=== PATIENT | female | born 1965 | race American Indian/Alaskan Native ===

== ENCOUNTER 2019-10-12 21:50 | Observation (INO) | payer SELFPAY ==
[2019-10-12] MEDS ORDERED: ASPIRIN 325 MG TAB PO ONE (22:32)
--- NOTE | 2019-10-12 23:41 | XRay Report ---
CHEST 1 VIEW INDICATION / CLINICAL INFORMATION: Chest Pain. COMPARISON: None available. FINDINGS: SUPPORT DEVICES: None. HEART / MEDIASTINUM: Critics silhouette size appears slightly enlarged. LUNGS / PLEURA: There is some mild interstitial pulmonary edema. The lungs are otherwise clear. No ap preciable pleural effusion. No pneumothorax. ADDITIONAL FINDINGS: No significant additional findings. IMPRESSION: 1. Mild interstitial pulmonary edema. Borderline cardiomegaly. Signer Name: Tiffanie Johnson MD Signed: 10/12/2019 11:37 PM Workstation Name: [id number]
[2019-10-12 23:53] LABS: BUN/Creatinine Ratio 14; Blood Urea Nitrogen 14 mg/dL (7-17); Calcium 9.5 mg/dL (8.4-10.2); Hemolysis Index 1
[2019-10-12 23:54] LABS: Basophils % (Auto) 0.7 % (0.0-1.8); Eosinophils # (Auto) 0.4 K/mm3 (0.0-0.4); Eosinophils % (Auto) 5.8 % (0.0-4.3); Hematocrit 29.8 % (30.3-42.9); Hemoglobin 10.2 gm/dl (10.1-14.3); Lymphocytes % (Auto) 28.3 % (13.4-35.0); Mean Corpuscular HGB Conc 34 % (30-34); Mean Corpuscular Volume 71 fl (79-97); Monocytes # (Auto) 0.5 K/mm3 (0.0-0.8); Monocytes % (Auto) 6.6 % (0.0-7.3); Platelet Count 306 K/mm3 (140-440); Red Blood Count 4.21 M/mm3 (3.65-5.03); Red Cell Distribution Width 15.4 % (13.2-15.2)
--- NOTE | 2019-10-13 03:32 | Emergency Department Report ---
ED Chest Pain HPI - General Chief Complaint: Chest Pain Stated Complaint: CHEST PAIN PUI?: No Time Seen by Provider: 10/13/19 03:16 Source: patient Mode of arrival: Ambulatory Limitations: No Limitations - History of Present Illness Initial Comments: Patient is a 53-year-old female that presents emergency room with complaints of chest pain or shortness of breath and lower extremity edema. Patient states her chest pain shortness of breath started this morning at 10 AM. Patient states the lower extremity edema started 2 to 3 days ago. Patient states her symptoms are worsening. Patient states her chest pain is a 10 out of 10. Patient states is a substernal chest pain. Patient states the chest pain is better with rest and worse with exertion. Patient states that shortness of breath is better with rest and worse with exertion. Patient denies fever and chills. Patient denies diaphoresis. Patient complains of nausea without vomiting. Patient denies recent travel. Patient denies recent international travel. P atient denies exposure to the novel coronavirus. Patient denies sick contacts. Patient denies fever and chills. Patient denies cough. Patient denies diarrhea. Patient denies coming in contact with anybody with symptoms of the novel coronavirus. MD Complaint: chest pain -: Sudden Onset: during rest Pain Location: substernal, left chest Severity: severe Severity scale (0 -10): 10 Quality: sharp Consistency: constant Improves With: rest Worsens With: exertion re: nausea, dyspnea. denies: vomting, diaphoresis, sense of impending doom Other Symptoms: leg swelling. denies: cough, fever, syncope, rash, acid taste in mouth, palpitations, burping Treatments Prior to Arrival: none Aspirin use within the Past 7 Days: (1) Yes - Related Data On Oral Contraceptives: No Allergies Allergy/AdvReac Type Severity Reaction Status Date / Time hydrocodone Allergy Rash Verified 10/12/19 22:27 Heart Score - HEART Score History: Moderately suspicious EKG: Non-specific Age: 45-65 Risk factors: 1-2 risk factors Troponin: < normal limit HEART Score: 4 ED Review of Systems ROS: Stated complaint: CHEST PAIN Other details as noted in HPI Constitutional: denies: chills, fever Eyes: denies: eye pain, eye discharge, vision change ENT: denies: ear pain, throat pain Respiratory: shortness of breath. denies: cough, wheezing Cardiovascular: chest pain, dyspnea on exertion, edema. denies: palpitations Endocrine: no symptoms reported Gastrointestinal: denies: abdominal pain, nausea, diarrhea Genitourinary: denies: urgency, dysuria, discharge Musculoskeletal: denies: back pain, joint swelling, arthralgia Skin: denies: rash, lesions Neurological: denies: headache, weakness, paresthesias Psychiatric: denies: anxiety, depression Hematological/Lymphatic: denies: easy bleeding, easy bruising ED Past Medical Hx - Past Medical History Previous Medical History?: Yes Hx Hypertension: Yes Hx Diabetes: Yes - Surgical History Past Surgical History?: No - Family History Family history: no significant - Social History Smoking Status: Never Smoker Substance Use Type: None ED Physical Exam - General Limitations: No Limitations General appearance: alert, in no apparent distress - Head Head exam: Present: atraumatic, normocephalic - Eye Eye exam: Present: normal appearance - ENT ENT exam: Present: mucous membranes moist - Neck Neck exam: Present: normal inspection - Respiratory Respiratory exam: Present: normal lung sounds bilaterally. Absent: respiratory distress, wheezes, rales - Cardiovascular Cardiovascular Exam: Present: regular rate, normal rhythm. Absent: systolic murmur, diastolic murmur, rubs, gallop - GI/Abdominal GI/Abdominal exam: Present: soft, normal bowel sounds - Extremities Exam Extremities exam: Present: normal inspection - Back Exam Back exam: Present: normal inspection - Neurological Exam Neurological exam: Present: alert, oriented X3 - Psychiatric Psychiatric exam: Present: normal affect, normal mood - Skin Skin exam: Present: warm, dry, intact, normal color. Absent: rash ED Course Vital Signs 10/13/19 10/13/19 10/13/19 04:00 05:09 06:51 Pulse Rate 60 62 77 Respiratory 15 15 16 Rate Blood Pressure 222/105 211/109 146/94 [Right] O2 Sat by Pulse 97 97 97 Oximetry - Reevaluation(s) Reevaluation #1: Patient's BP significantly high and patient will be given 40 of Lasix for blood pressure and pulmonary edema. 10/13/19 03:55 Reevaluation #2: I discussed all results with patient. I discussed plan of care with patient. Patient agrees with plan of care and admission. Patient to be admitted to the hospitalist service. 10/13/19 04:15 Reevaluation #3: Patient's blood pressure still significantly elevated. Patient was given hydralazine 20 mg. Patient will continue to have her blood pressure checked r outinely. 10/13/19 05:02 Reevaluation #4: Patient's blood pressure has improved. 10/13/19 06:02 - Consultations Consultation #1: Hospitalist consulted for admission. Hospitalist to admit patient. 10/13/19 05:00 MARLO score - Marlo Score Age > 65: (0) No Aspirin use within the Past 7 Days: (1) Yes 3 or more CAD Risk Factors: (1) Yes 2 or more Angina events in past 24 hrs: (0) No Known CAD with more than 50% Stenosis: (0) No Elevated Cardiac Markers: (0) No ST Deviation Greater than 0.5mm: (0) No MARLO Score: 2 ED Medical Decision Making - Lab Data Result diagrams: 10/13/19 Unknown 10/12/19 22:52 - EKG Data -: EKG Interpreted by Me EKG shows normal: sinus rhythm, axis, intervals, QRS complexes, ST-T waves Rate: normal - EKG Data Interpretation: [facility] - Radiology Data Radiology results: report reviewed, image reviewed interpreted by me: Chest x-ray: cardiomegaly noted, pulmonary edema noted. no rib fractures noted. No foreign body noted. No pneumothorax noted. CHEST 1 VIEW INDICATION / CLINICAL INFORMATION: Chest Pain. COMPARISON: None available. FINDINGS: SUPPORT DEVICES: None. HEART / MEDIASTINUM: Critics silhouette size appears slightly enlarged. LUNGS / PLEURA: There is some mild interstitial pulmonary edema. The lungs are otherwise clear. No appreciable pleural effusion. No pneumothorax. ADDITIONAL FINDINGS: No significant additional findings. IMPRESSION: 1. Mild interstitial pulmonary edema. Borderline cardiomegaly. - Medical Decision Making Patient is a 53-year-old female that presents emergency room with complaints of chest pain or shortness of breath. Patient also complains of lower extremity edema. Patient had labs and a chest x-ray and EKG done. EKG shows no acute findings. Patient's chest x-ray shows pulmonary edema and cardiomegaly. Patient's labs are essentially unremarkable except for hypokalemia. Patient admitted to the hospital service for further evaluation and treatment. Patient given aspirin in the ER. - Differential Diagnosis cp. chf, acs, sob, sam Critical Care Time: Yes Critical care time in (mins) excluding proc time.: 35 Critical care attestation.: If time is entered above; I have spent that time in minutes in the direct care of this critically ill patient, excluding procedure time. Critical Care Time: 35 minutes ED Disposition Clinical Impression: New onset of congestive heart failure, SOB (shortness of breath), Lower extremity edema, Malignant hypertension Chest pain Qualifiers: Chest pain type: unspecified Qualified Code(s): R07.9 - Chest pain, unspecified Pulmonary edema Qualifiers: Chronicity: acute Qualified Code(s): J81.0 - Acute pulmonary edema Disposition: -09 OP ADMIT IP TO THIS HOSP Is pt being admited?: Yes Does the pt Need Aspirin: No Condition: Critical Time of Disposition: 03:58
[2019-10-13] MEDS ORDERED: FUROSEMIDE 40 MG/4 ML INJ IV ONE (04:01)
[2019-10-13] MEDS ORDERED: FUROSEMIDE 40 MG/4 ML INJ ONE (04:03)
[2019-10-13] MEDS ORDERED: hydrALAZINE 20 MG/1 ML INJ IV ONE ×2 (05:09→14:00)
[2019-10-13 12:01] VITALS: BP 175/93
--- NOTE | 2019-10-13 12:57 | Event Note ---
Date: 10/13/19 53-year-old female presents to ED for evaluation. Patient initially complained of chest pain. Patient treated in accordance with chest pain protocol. Patient treated with serial cardiac enzymes, EKG and telemetry monitoring which was unremarkable for acute ischemia. Upon further interview the patient acknowledges medication noncompliance and states that she presents to [facility] for evaluation to get a new blood pressure medication prescription. At the time of my evaluation the patient denies fever, chills, chest pain, palpitation, productive cough, recent ill contacts or known exposure to COVID-19. Patient is medically optimized and back to her usual state of health and subsequently discharged home. Patient instructed to maintain blood pressure log 3 times daily and to present to primary care physician within 3 to 5 days with blood pressure log. Patient counseled regarding medication noncompliance. Patient knowledges understanding instructions and will attempt to comply in the future. ED Physical Exam - General Limitations: No Limitations General appearance: alert, in no apparent distress - Head Head exam: Present: atraumatic, normocephalic - Eye Eye exam: Present: normal appearance - ENT ENT exam: Present: mucous membranes moist - Neck Neck exam: Present: normal inspection - Respiratory Respiratory exam: Present: normal lung sounds bilaterally. Absent: respiratory distress, wheezes, rales - Cardiovascular Cardiovascular Exam: Present: regular rate, normal rhythm. Absent: systolic murmur, diastolic murmur, rubs, gallop - GI/Abdominal GI/Abdominal exam: Present: soft, normal bowel sounds - Extremities Exam Extremities exam: Present: normal inspection - Back Exam Back exam: Present: normal inspection - Neurological Exam Neurological exam: Present: alert, oriented X3 - Psychiatric Psychiatric exam: Present: normal affect, normal mood - Skin Skin exam: Present: warm, dry, intact, normal color. Absent: rash
== END 2019-10-13 17:34 | disposition home or self-care (01) ==
LOC: ED 21:50 → 4A 10-13 07:01
PROVIDERS: ADMIT Internal Medicine Geriatric Medicine; ATTEND Internal Medicine
DX: R07.2 Precordial pain (principal); J81.1 Chronic pulmonary edema; I11.0 Hypertensive heart disease with heart failure; I50.9 Heart failure, unspecified; E11.9 Type 2 diabetes mellitus without complications
CPT/HCPCS: 36415; 71045; 80048; 82962; 83880; 84484; 85025; 93005; 96374; 96375; 96376; 99291; G0378; J0360; J1940